=== PATIENT | female | born 1995 ===

== ENCOUNTER 2017-06-12 13:44 | Observation (INO) | payer BC ==
--- NOTE | 2017-06-12 14:14 | ED PDOC ---
HPI: General Adult Time Seen by Provider: 06/12/17 14:01 Chief Complaint (Nursing): Flu-like Symptoms Chief Complaint (Provider): Flu-like Symptoms History Per: Patient History/Exam Limitations: no limitations Onset/Duration Of Symptoms: Days Additional Complaint(s): 21 year old female who is currently 19 weeks presents to the emergency department with a fever onset last night, 06/11/2017. Associated with a dry cough, body aches, fatigue, and mild headache. Denies dysuria, vomiting, diarrhea, rash, abdominal pain, vaginal bleeding, or localized joint pain. Reports she took Tylenol at 8am this morning and did not receive a flu shot. Patient sees Dr. Juli HERNÁNDEZ with no issues to date. Past Medical History Reviewed: Historical Data, Nursing Documentation, Vital Signs Vital Signs: Last Vital Signs Temp 101.9 F H 06/12/17 13:57 Pulse 145 H 06/12/17 13:57 Resp 15 06/12/17 13:57 BP 145/79 06/12/17 13:57 Pulse Ox 99 06/12/17 15:49 - Medical History PMH: No Chronic Diseases - Surgical History Surgical History: No Surg Hx - Family History Family History: States: Unknown Family Hx - Social History Current smoker - smoking cessation education provided: No Alcohol: None Drugs: Denies - Allergies Allergies/Adverse Reactions: Allergies Allergy/AdvReac Type Severity Reaction Status Date / Time No Known Allergies Allergy Verified 06/12/17 13:56 Review of Systems ROS Statement: Except As Marked, All Systems Reviewed And Found Negative (As per HPI, otherwise negative) Constitutional: Positive for: Fever, Malaise, Other (fatigue and body aches) Respiratory: Positive for: Cough Gastrointestinal: Negative for: Vomiting, Abdominal Pain, Diarrhea Genitourinary Female: Negative for: Dysuria, Vaginal Bleeding Musculoskeletal: Negative for: Other (localized joint pain) Skin: Negative for: Rash Neurological: Positive for: Headache (mild) Physical Exam - Reviewed Nursing Documentation Reviewed: Yes Vital Signs Reviewed: Yes - Physical Exam Appears: Positive for: No Acute Distress Head Exam: Positive for: NORMAL INSPECTION Skin: Positive for: Normal Color, Warm, Dry ENT: Positive for: TM Is/Are (Normal), Pharyngeal Erythema (Mild) Neck: Positive for: Normal, Supple Cardiovascular/Chest: Positive for: Regular Rate, Rhythm. Negative for: Murmur Respiratory: Positive for: Normal Breath Sounds. Negative for: Accessory Muscle Use, Respiratory Distress Gastrointestinal/Abdominal: Positive for: Normal Exam (fundus is just below the umbilicus ), Soft. Negative for: Tenderness Extremity: Positive for: Normal ROM. Negative for: Pedal Edema Neurologic/Psych: Positive for: Alert, Oriented (x3) - Laboratory Results Result Diagrams: 06/12/17 14:13 06/12/17 14:13 - ECG O2 Sat by Pulse Oximetry: 99 (RA) Pulse Ox Interpretation: Normal Medical Decision Making Medical Decision Making: Time: 1400 Initial Impression: Flu-like symptoms in a midterm Initial Plan: --EKG --CMP --CBC w/ diff --PTT & Prothrombin --Chest portable --Tylenol 650 mg PO --Blood and Urine culture --Influenza A B --Urinalysis --Reevaluation Risks of radiation exposure were explained while benefits outweighs risks. --Negative for influenza A B Time: 1451 --Chest x-ray FINDINGS: LUNGS: No active pulmonary disease. PLEURA: No significant pleural effusion identified, no pneumothorax apparent. CARDIOVASCULAR: Normal. OSSEOUS STRUCTURES: No significant abnormalities. VISUALIZED UPPER ABDOMEN: Normal. OTHER FINDINGS: None. IMPRESSION: No active disease. labs reviewed mild leukocytosis flu negative but symptoms suggestive of flu w body aches, fever, cough Time: 1517 --Tamiflu 75 mg PO Time: 1520 --Patient signed out to Dr. Josefina HERNÁNDEZ --Pending reevaluation and disposition Scribe Attestation: Documented by Luz Mercado, acting as a scribe for Laci Longoria DO. Provider Scribe Attestation: All medical record entries made by the Scribe were at my direction and personally dictated by me. I have reviewed the chart and agree that the record accurately reflects my personal performance of the history, physical exam, medical decision making, and the department course for this patient. I have also personally directed, reviewed, and agree with the discharge instructions and disposition. Disposition - Clinical Impression Clinical Impression: Influenza-like symptoms - Patient ED Disposition Is Patient to be Admitted: Transfer of Care - Disposition Disposition: Transfer of Care Disposition Time: 15:22 Condition: STABLE Forms: [employer] (Citizen Of [place]) Patient Signed Over To: Kael Rocha Handoff Comments: pending re-eval/dispo
[2017-06-12 14:32] LABS: PARTIAL THROMBOPLASTIN TIME 27.9 Seconds (25.6-37.1); PROTHROMBIN TIME 11.6 Seconds (9.8-13.1)
[2017-06-12 14:37] LABS: BASO % 0.2 % (0.0-2.0); EOS # 0.1 K/uL (0.0-0.7); HEMOGLOBIN 11.2 g/dL (12.0-16.0); LYMPH # 0.4 K/uL (1.0-4.3); MEAN CELL VOLUME 83.4 fl (81.0-99.0); MEAN CORPUSCULAR HEMOGLOBIN 27.1 pg (27.0-31.0); MEAN CORPUSCULAR HGB CONC 32.5 g/dL (33.0-37.0); MEAN PLATELET VOLUME 11.4 fl (7.2-11.7); MONO # 0.9 K/uL (0.0-0.8); MONO % 7.5 % (0.0-10.0); NEUT # 10.8 K/uL (1.8-7.0); NEUT % 88.3 % (50.0-75.0); PLATELET COUNT 162 K/uL (130-400); RBC 4.15 Mil/uL (3.80-5.20); RED CELL DISTRIBUTION WIDTH 14.3 % (11.5-14.5); WHITE BLOOD COUNT 12.2 K/uL (4.8-10.8)
[2017-06-12 14:46] LABS: ALB/GLOB RATIO 1.2 (1.0-2.1); ALBUMIN 3.8 g/dL (3.5-5.0); ALT/SGPT 36 U/L (9-52); AST/SGOT 22 U/L (14-36); BLOOD UREA NITROGEN 5 mg/dl (7-17); GFR AFRICAN-AMERICAN > 60; GFR NON-AFRICAN AMERICAN > 60
--- NOTE | 2017-06-12 14:53 | RAD ---
HISTORY: , fever SOB cough COMPARISON: No prior. FINDINGS: LUNGS: No active pulmonary disease. PLEURA: No significant pleural effusion identified, no pneumothorax apparent. CARDIOVASCULAR: Normal. OSSEOUS STRUCTURES: No significant abnormalities. VISUALIZED UPPER ABDOMEN: Normal. OTHER FINDINGS: None. IMPRESSION: No active disease.
[2017-06-12] MEDS ORDERED: Sodium Chloride 0.9% 1,000 ML IV STA (15:04)
[2017-06-12 15:19] LABS: BANDS 5 % (0-2); BASOPHIL 1 % (0-2); LYMPHOCYTE 3 % (20-50); MONOCYTE 9 % (0-10); NEUTROPHIL 82 % (42-75); PLATELET ESTIMATE NORMAL (NORMAL); TOTAL CELLS COUNTED 100
[2017-06-12 15:20] LABS: HYPOCHROMIC SLIGHT; TOXIC GRANULATION PRESENT
--- NOTE | 2017-06-12 15:50 | ED PDOC ---
- Laboratory Results Result Diagrams: 06/12/17 14:13 06/12/17 14:13 - ECG O2 Sat by Pulse Oximetry: 99 (RA) Pulse Ox Interpretation: Normal Medical Decision Making Medical Decision Making: Patient signed out to provider at [address] Longoria pending reevaluation and final disposition. 153 PROCEDURE: Bilateral lower extremity venous duplex Doppler. HISTORY: SOB, tachycardia COMPARISON: None available. TECHNIQUE: Bilateral common femoral, superficial femoral, popliteal and posterior tibial veins were evaluated. Flow was assessed with color Doppler, compressibility, assessment of phasic flow and augmentation response. FINDINGS: COMMON FEMORAL VEIN: Right CFV: Unremarkable. Left CFV: Unremarkable. SUPERFICIAL FEMORAL VEIN: Right SFV: Unremarkable. Left SFV: Unremarkable. POPLITEAL VEIN: Right Popliteal: Unremarkable. Left Popliteal: Unremarkable. POSTERIOR TIBIAL VEIN: Right PTV: Unremarkable. Left PTV: Unremarkable. OTHER FINDINGS: None. IMPRESSION: No evidence of deep venous thrombosis. Documented by Carie Burrows acting as a scribe for Kael Rocha MD. All medical record entries made by the Scribe were at my direction and personally dictated by me. I have reviewed the chart and agree that the record accurately reflects my personal performance of the history, physical exam, medical decision making, and the department course for this patient. I have also personally directed, reviewed, and agree with the discharge instructions and disposition. Pt remains tachycardic at 130 despite temp 99.5. SOB on ambulation. Discussed with Ob Dr. Angel, agrees that CTA chest appropriate to r/o PE. Discussed with pt, risks and benefit discussed. Pt agrees to have CTA chest. Disposition - Clinical Impression Clinical Impression: Influenza-like symptoms, Tachycardia - POA Present On Arrival: None - Disposition Disposition: Hospitalized as Observation Patient Disposition Time: 18:48 Condition: FAIR Forms: Crew (Amharic)
[2017-06-12 16:14] LABS: SQUAMOUS EPITHIAL 1 /hpf (0-5); URINE BILIRUBIN NEGATIVE (NEGATIVE); URINE BLOOD SMALL (NEGATIVE); URINE CLARITY SLIGHTY-CLOUDY (Clear); URINE COLOR STRAW (YELLOW); URINE GLUCOSE (UA) NEG (Normal); URINE LEUKOCYTE ESTERASE NEG Leu/uL (Negative); URINE PROTEIN NEGATIVE (NEGATIVE); URINE UROBILINOGEN 0.2-1.0 mg/dL (0.2-1.0)
--- NOTE | 2017-06-12 16:34 | US ---
PROCEDURE: Bilateral lower extremity venous duplex Doppler. HISTORY: SOB, tachycardia COMPARISON: None available. TECHNIQUE: Bilateral common femoral, superficial femoral, popliteal and posterior tibial veins were evaluated. Flow was assessed with color Doppler, compressibility, assessment of phasic flow and augmentation response. FINDINGS: COMMON FEMORAL VEIN: Right CFV: Unremarkable. Left CFV: Unremarkable. SUPERFICIAL FEMORAL VEIN: Right SFV: Unremarkable. Left SFV: Unremarkable. POPLITEAL VEIN: Right Popliteal: Unremarkable. Left Popliteal: Unremarkable. POSTERIOR TIBIAL VEIN: Right PTV: Unremarkable. Left PTV: Unremarkable. OTHER FINDINGS: None. IMPRESSION: No evidence of deep venous thrombosis.
[2017-06-12] MEDS ORDERED: Iodixanol 320 MG/ML 100 ML BOTTLE IV ONE (17:31)
[2017-06-12] MEDS ORDERED: Sodium Chloride 0.9% 100 ML ONE (17:32)
[2017-06-12] MEDS ORDERED: Albuterol-Ipratrop 3 mg / 0.5 (3 ml) UD INH PRN (20:45)
[2017-06-12 22:48] LABS: ABG ALLEN TEST YES; ARTERIAL BLOOD GAS HCO3 23.1 mmol/L (21-28); ARTERIAL BLOOD GAS HEMOGLOBIN 10.8 g/dL (11.7-17.4); ARTERIAL BLOOD GAS O2 CONTENT 14.9 ML/dL (15-23); ARTERIAL BLOOD GAS O2 SAT 99.5 % (95-98); ARTERIAL BLOOD GAS PCO2 28 mm/Hg (35-45); ARTERIAL BLOOD GAS PH 7.47 (7.35-7.45); ARTERIAL BLOOD GAS PO2 102 mm/Hg (80-100); ARTERIAL BLOOD GAS TCO2 21.3 mmol/L (22-28)
--- NOTE | 2017-06-13 00:57 | PN ---
DATE: SUBJECTIVE: I was called this evening for consult because of sinus tachycardia. I did review the information on [employer] remotely. According to the ER evaluation, the patient is a 21-year-old female who is currently 19 weeks who presents to the Emergency Room Department with a fever onset last night associated with dry cough, body aches, fatigue and mild headache. The patient denies dysuria, vomiting, diarrhea, rash, abdominal pain, vaginal bleeding, or localized joint pain. She reports she took Tylenol at a.m. this morning. Did not receive flu shot. The patient's EKG in Emergency Room revealed sinus tachycardia at rate of 139. The patient was admitted to telemetry after CT angio of the chest was performed as well as venous Doppler of the lower extremity. The official report of the venous Doppler of the lower extremity was negative for DVT. Official report of chest CT angio is still pending, however, my own review, did not reveal any central pulmonary embolism or aortic dissection. I did ask the nurse to repeat EKG which was faxed to me revealed sinus tachycardia at the same rate the first EKG revealed which was 139 per minute with new subtle anterior T wave inversion lead V1 and V2. According to the nurse, the patient has no chest pain or back pain and has no complains at all. The patient's initial temperature around 2:00 p.m. today was 101.9. In view of the above data, the patient will be observed on telemetry. The patient did received albuterol inhaler at around 8:45 a.m. which may contribute sinus tachycardia. Sinus tachycardia at this point is a physiologic response to the patient's fever as well as the possibility of right lower lobe pneumonia has seen on the chest x-ray. I will ask for to be done and I did request echocardiographic study and I will follow the official report of the CT angio of the chest. Kris Frausto MD
[2017-06-13 07:05] LABS: BARBITURATES, UR NEGATIVE (NEGATIVE); BENZODIAZEPINES, UR NEGATIVE (NEGATIVE); OPIATES, UR NEGATIVE (NEGATIVE); PHENCYCLIDINE, UR NEGATIVE (NEGATIVE)
[2017-06-13 07:20] LABS: HEMOGLOBIN 11.3 g/dL (12.0-16.0); MEAN CELL VOLUME 83.2 fl (81.0-99.0); MEAN CORPUSCULAR HEMOGLOBIN 27.1 pg (27.0-31.0); MEAN CORPUSCULAR HGB CONC 32.6 g/dL (33.0-37.0); RBC 4.18 Mil/uL (3.80-5.20); WHITE BLOOD COUNT 9.5 K/uL (4.8-10.8)
[2017-06-13 07:34] LABS: ALB/GLOB RATIO 1.1 (1.0-2.1); ALBUMIN 3.6 g/dL (3.5-5.0); ALT/SGPT 42 U/L (9-52); AST/SGOT 30 U/L (14-36); BLOOD UREA NITROGEN 3 mg/dl (7-17); GFR AFRICAN-AMERICAN > 60; GFR NON-AFRICAN AMERICAN > 60
[2017-06-13 07:48] LABS: T4 11.5 ug/dl (5.5-11.0)
--- NOTE | 2017-06-13 08:54 | CT ---
PROCEDURE: CT Chest with contrast (Pulmonary Angiogram) HISTORY: SOB Tachycardia COMPARISON: None available. TECHNIQUE: Axial computed tomography images were obtained of the chest in the pulmonary arterial phase of enhancement. Coronal and sagittal reformatted images were created and reviewed. Intravenous contrast dose: 98 mL Visipaque 320 Radiation dose: Total exam DLP = 371.9 mGy-cm. This CT exam was performed using one or more of the following dose reduction techniques: Automated exposure control, adjustment of the mA and/or kV according to patient size, and/or use of iterative reconstruction technique. FINDINGS: PULMONARY ARTERIES: Limited evaluation due to suboptimal opacification and respiratory motion. No central pulmonary embolism. AORTA: No acute findings. No thoracic aortic aneurysm. LUNGS: Unremarkable. No nodule, mass or pulmonary consolidation. PLEURAL SPACES: Unremarkable. No effusion or pneuomothorax. HEART: Unremarkable. No cardiomegaly. No significant pericardial effusion. LYMPH NODES: Prominent subcarinal node measuring 1.3 cm in short axis. BONES, CHEST WALL: Unremarkable. No fracture or destructive lesion OTHER FINDINGS: Unremarkable. IMPRESSION: Limited CT pulmonary angiogram. No pulmonary embolus.
--- NOTE | 2017-06-13 09:07 | US ---
PROCEDURE: OB Pelvic Ultrasound HISTORY: 19 weeks tachycardia LMP: 02/01/2017 COMPARISON: None available. FINDINGS: UTERUS: Placenta: Posterior Presentation: Breech BPD: 4.6 cm compatible with estimated gestational age of 20 weeks, 0 days HC: 17.4 cm compatible with estimated gestational age of 19 weeks, 6 days HC: 14.7 cm compatible with estimated gestational age of 20 weeks, 0 days FL: 3.2 cm compatible with estimated gestational age of 19 weeks, 6 days Heart rate: 157 bpm. age (Ultrasound estimated): 20 weeks, 0 days Rosario-gestational hemorrhage: None. Date of delivery (Ultrasound estimated) : 10/30/2017 CERVIX: Measures 3.5 cm. Long and closed. No cervical abnormality seen. RIGHT OVARY: Measures 2.7 x 1.9 x 1.9 cm. No mass lesion. Normal flow. LEFT OVARY: Measures 2.0 x 2.3 x 1.4 cm. No solid mass. Normal flow. FREE FLUID: None. OTHER FINDINGS: None. IMPRESSION: Single live intrauterine with average ultrasound age of 20 weeks, 0 days. heart rate 157 beats per minute. Cervix long and closed.
[2017-06-13] MEDS: Levalbuterol 0.63 MG/3 ML Inhal Soln UD INH PRN ×2 (11:32→17:41)
--- NOTE | 2017-06-13 13:26 | HP ---
CHIEF COMPLAINT: Flu-like symptoms. HISTORY OF PRESENT ILLNESS: This is a 21-year-old female who is 19 weeks' who was having high fever, dry cough, body ache, fatigue, and headache, so the patient was brought to the Emergency Room where the patient was found to be tachycardic with heart rate into 140. So, the patient was admitted for further management. REVIEW OF SYSTEMS: Positive for flu-like symptoms. Review of systems otherwise is negative for headache, dizziness, syncope, loss of consciousness, chest pain, shortness of breath, nausea, vomiting, diarrhea, constipation or any new joint or extremity pain. Review of systems of all other organ systems is unremarkable. PAST MEDICAL HISTORY: Unremarkable. PAST SURGICAL HISTORY: Unremarkable. PERSONAL HISTORY: The patient is currently nonsmoker, nondrinker and no substance abuse, although the patient's toxicology is positive for marijuana. MEDICATIONS: The patient is not on any medication. ALLERGIES: THE PATIENT IS NOT ALLERGIC TO ANY MEDICATIONS. FAMILY HISTORY: Noncontributory. PHYSICAL EXAMINATION: GENERAL: A well-built and well-nourished, overweight 21-year-old female, in no acute distress. VITAL SIGNS: Temperature of 99.3, pulse of 118, respirations of 19, and blood pressure of 115/80, and saturation of 97%. HEENT AND NECK: Pupils are reactive to light. No JVD. No thyromegaly. No lymphadenopathy. No nystagmus. Normocephalic and atraumatic skull. HEART: S1 and S2, normal and regular. Tachycardic. No significant murmur, gallop or rub is heard. LUNGS: Exam shows good bilateral air exchange. No rales or rhonchi. ABDOMEN: Soft and nontender. No organomegaly. No fluids. Bowel sounds are plus and normal. The patient is a 19 weeks' . EXTREMITIES: No edema. No calf swelling. No tenderness. No acute ischemia. CENTRAL NERVOUS SYSTEM: Exam is essentially unchanged and there is no sign of any acute gross focal motor or sensory neurological deficits. DIAGNOSTIC DATA: Available diagnostic data reviewed. LABORATORY DATA: WBC of 9.5, hemoglobin of 11.3, hematocrit of 34.8, and platelets of 133. Sodium of 130, potassium of 3.8, chloride of 106, bicarbonate of 18, BUN of 3, and creatinine of 0.1. SMA-12 is unremarkable. Urinalysis is negative. Urine toxicology is positive for marijuana. IMAGING DATA: CAT scan of the chest is unremarkable for pulmonary embolism. Extremity ultrasounds are negative. Chest x-ray is clear. ADMITTING IMPRESSION: Flu like symptoms with negative flu test, and sinus tachycardia. PLAN: As ordered. Treatment plan discussed with the patient. Blayne Estevez MD
[2017-06-13] MEDS: Levalbuterol 0.63 MG/3 ML Inhal Soln UD INH SCH ×2 (13:32→20:00)
--- NOTE | 2017-06-13 14:47 | CP.PCM.CON ---
History of Present Illness - History of Present Illness History of Present Illness: Pulmonary consult on 06/13/17, for a 21 y/o F, with no chronic PMH, admitted to [facility] on 06/12/17 due to mild SOB, associated to dry cough with periods of productive small amount of white phlegms, sore throat, increased pain with cough, moderate intensity 6:10, fever (in ER 101. 9 F) body ache, onset day [employer] , Pt taking Tylenol with no relief of symptoms. Worsening symptoms: On evaluation, found with 20 weeks , Tachycardic, HR 118-132 BPM upon arrival to ED unit. Aggravated factor: No medications at home. Pt denied: Abdominal pain, n/v/d, urinary symptoms, bloody cough, bleeding, headache, dizziness, syncope, LOC, numbness, sick contact, recent travel out of [facility]. CT Chest showed; Limited evaluation due to suboptimal opacification and respiratory motion. No: PE, pleural effusion, pneumothorax, nodule, mass or pulmonary consolidation. Ext U-S: No DVT. EKG: Sinus Tachycardia. Review of Systems - Constitutional Constitutional: Fever - EENT Eyes: Other (negative) Ears: Other (negative) Nose/Mouth/Throat: Other (negative) - Cardiovascular Cardiovascular: Rapid Heart Rate - Respiratory Respiratory: Cough, Dyspnea, Pain with Coughing - Gastrointestinal Gastrointestinal: Other (negative) - Genitourinary Genitourinary: Other (negative) - Musculoskeletal Musculoskeletal: Other (negative) - Integumentary Integumentary: Other (negative) - Neurological Neurological: Other (negative) - Psychiatric Psychiatric: Other (negative) - Endocrine Endocrine: Other (negative) - Hematologic/Lymphatic Hematologic: Other (negative) Past Patient History - Past Medical History & Family History Past Medical History?: No Pertinent Family History: Unknown - Past Social History Smoking Status: Never Smoked Alcohol: None Drugs: Cannabis Home Situation {Lives}: With Family - CARDIAC Hx Cardiac Disorders: No - PULMONARY Hx Respiratory Disorders: No - NEUROLOGICAL Hx Neurological Disorder: No - HEENT Hx HEENT Problems: No - RENAL Hx Chronic Kidney Disease: No - ENDOCRINE/METABOLIC Hx Endocrine Disorders: No - HEMATOLOGICAL/ONCOLOGICAL Hx Blood Disorders: No Hx AIDS: No Hx Human Immunodeficiency Virus (HIV): No - INTEGUMENTARY Hx Dermatological Problems: No - MUSCULOSKELETAL/RHEUMATOLOGICAL Hx Falls: No - GASTROINTESTINAL Hx Gastrointestinal Disorders: No - GENITOURINARY/GYNECOLOGICAL Hx Genitourinary Disorders: No - PSYCHIATRIC Hx Substance Use: No - SURGICAL HISTORY Hx Surgeries: No - ANESTHESIA Hx Anesthesia: No Meds Home Medications: Home Medication List Medication Instructions Recorded Confirmed Type Amoxicillin/Potassium Clav 1 each PO BID #10 tablet 06/14/17 Rx [Augmentin 500-125 Tablet] Oseltamivir Phosphate [Tamiflu] 75 mg PO BID #6 capsule 06/14/17 Rx Allergies/Adverse Reactions: Allergies Allergy/AdvReac Type Severity Reaction Status Date / Time No Known Allergies Allergy Verified 06/12/17 13:56 - Medications Medications: Current Medications Acetaminophen (Tylenol 325mg Tab) 650 mg PO Q6 PRN PRN Reason: Fever >100.4 F Benzocaine/Menthol (Cepacol Sore Throat) 1 gunner PO Q2 PRN PRN Reason: Sore Throat Levalbuterol HCl (Xopenex) 0.63 mg INH RQ6 PRISCILA Last Admin: 06/13/17 13:32 Dose: 0.63 mg Levalbuterol HCl (Xopenex) 0.63 mg INH RQ8 PRN PRN Reason: Shortness of Breath Last Admin: 06/13/17 11:32 Dose: 0.63 mg Oseltamivir Phosphate (Tamiflu Cap) 75 mg PO BID PRISCILA PRN Reason: Protocol Last Admin: 06/13/17 11:14 Dose: 75 mg Physical Exam - Constitutional Appears: No Acute Distress - Head Exam Head Exam: NORMAL INSPECTION - Eye Exam Eye Exam: PERRL - ENT Exam ENT Exam: Normal Exam - Neck Exam Neck exam: Positive for: Normal Inspection - Respiratory Exam Respiratory Exam: Decreased Breath Sounds (at bases), Rales - Cardiovascular Exam Cardiovascular Exam: REGULAR RHYTHM - GI/Abdominal Exam Additional comments: defered - Extremities Exam Extremities exam: Positive for: normal inspection - Back Exam Back exam: NORMAL INSPECTION - Neurological Exam Neurological exam: Alert, Oriented x3 Additional comments: No motor /sensory deficit. - Psychiatric Exam Psychiatric exam: Normal Mood - Skin Skin Exam: Warm Results - Vital Signs Recent Vital Signs: Last Vital Signs Temp 98.6 F 06/13/17 12:00 Pulse 112 H 06/13/17 12:00 Resp 18 06/13/17 12:00 BP 127/84 06/13/17 12:00 Pulse Ox 98 06/13/17 12:00 jawsinder Barroso - Labs Result Diagrams: 06/13/17 06:24 06/13/17 06:24 Labs: Laboratory Results - last 24 hr 06/12/17 06/12/17 06/12/17 14:13 15:52 22:30 WBC RBC Hgb Hct MCV MCH MCHC RDW Plt Count Neutrophils % (Manual) 82 H Band Neutrophils % 5 H Lymphocytes % (Manual) 3 L Monocytes % (Manual) 9 Basophils % (Manual) 1 Toxic Granulation Present Platelet Estimate Normal Hypochromasia (manual) Slight pCO2 28 L pO2 102 H HCO3 23.1 ABG pH 7.47 H ABG Total CO2 21.3 L ABG O2 Saturation 99.5 H ABG O2 Content 14.9 L ABG Base Excess -2.4 L ABG Hemoglobin 10.8 L ABG Carboxyhemoglobin 1.5 POC ABG HHb (Measured) 0.5 ABG Methemoglobin 0.9 ABG O2 Capacity 15.0 L Blade Test Yes A-a O2 Difference 91.0 Hgb O2 Saturation 97.1 FiO2 32.0 Sodium Potassium Chloride Carbon Dioxide Anion Gap BUN Creatinine Est GFR ( Amer) Est GFR (Non-Af Amer) Random Glucose Calcium Total Bilirubin AST ALT Alkaline Phosphatase Total Protein Albumin Globulin Albumin/Globulin Ratio Vitamin B12 Thyroxine (T4) TSH 3rd Generation Urine Color Straw Urine Clarity Slighty-cloudy Urine pH 7.0 Ur Specific [place] 1.008 Urine Protein Negative Urine Glucose (UA) Neg Urine Ketones Negative Urine Blood Small Urine Nitrate Negative Urine Bilirubin Negative Urine Urobilinogen 0.2-1.0 Ur Leukocyte Esterase Neg Urine RBC (Auto) < 1 Urine Microscopic WBC 1 Ur Squamous Epith Cells 1 Urine Opiates Screen Urine Methadone Screen Ur Barbiturates Screen Ur Phencyclidine Scrn Ur Amphetamines Screen U Benzodiazepines Scrn U Oth Cocaine Metabols U Cannabinoids Screen 06/13/17 06/13/17 06/13/17 05:17 06:24 06:24 WBC 9.5 RBC 4.18 Hgb 11.3 L Hct 34.8 MCV 83.2 MCH 27.1 MCHC 32.6 L RDW 15.0 H Plt Count 133 Neutrophils % (Manual) Band Neutrophils % Lymphocytes % (Manual) Monocytes % (Manual) Basophils % (Manual) Toxic Granulation Platelet Estimate Hypochromasia (manual) pCO2 pO2 HCO3 ABG pH ABG Total CO2 ABG O2 Saturation ABG O2 Content ABG Base Excess ABG Hemoglobin ABG Carboxyhemoglobin POC ABG HHb (Measured) ABG Methemoglobin ABG O2 Capacity Blade Test A-a O2 Difference Hgb O2 Saturation FiO2 Sodium 138 Potassium 3.8 Chloride 106 Carbon Dioxide 18 L Anion Gap 18 BUN 3 L Creatinine 0.4 L Est GFR ( Amer) > 60 Est GFR (Non-Af Amer) > 60 Random Glucose 89 Calcium 9.0 Total Bilirubin 0.2 AST 30 ALT 42 Alkaline Phosphatase 56 Total Protein 6.8 Albumin 3.6 Globulin 3.2 Albumin/Globulin Ratio 1.1 Vitamin B12 556 Thyroxine (T4) 11.5 H TSH 3rd Generation 0.48 Urine Color Urine Clarity Urine pH Ur Specific [place] Urine Protein Urine Glucose (UA) Urine Ketones Urine Blood Urine Nitrate Urine Bilirubin Urine Urobilinogen Ur Leukocyte Esterase Urine RBC (Auto) Urine Microscopic WBC Ur Squamous Epith Cells Urine Opiates Screen Negative Urine Methadone Screen Negative Ur Barbiturates Screen Negative Ur Phencyclidine Scrn Negative Ur Amphetamines Screen Negative U Benzodiazepines Scrn Negative U Oth Cocaine Metabols Negative U Cannabinoids Screen Positive H reviewed J.P. - EKG Data EKG comments: reviewed J.P. - Imaging and Cardiology CT scan - chest Status: Report reviewed by me (Dharmesh) Chest x-ray Status: Report reviewed by me (Dharmesh) Assessment & Plan (1) Influenza-like symptoms Status: Acute Priority: High (2) Sore throat Status: Resolved Priority: High (3) 19 weeks gestation of Status: Acute Priority: High (4) Cannabis abuse Status: Acute Priority: High - Assessment and Plan (Free Text) Plan: Continue Tamiflu, Augmentin, Cepacole, Xopenex. - Date & Time Date: 06/13/17
--- NOTE | 2017-06-13 15:00 | CARD ---
APPROVED REPORT EKG Measurement Heart [id number] <Conclusion> Sinus tachycardia ST & T wave abnormality, nonspecific Abnormal ECG
--- NOTE | 2017-06-13 15:08 | CARD ---
APPROVED REPORT EKG Measurement Heart [id number] <Conclusion> Sinus tachycardia Septal infarct, age undetermined Abnormal ECG
[2017-06-13] MEDS ORDERED: Nasal Spray(Ocean spray) NAS PRN (17:34)
[2017-06-13] MEDS: Benzocaine/Menthol (Cepacol) Lozenge PO PRN (18:38)
[2017-06-13] MEDS ORDERED: AYR BABY SALINE NOSE DROP NAS PRN (19:15)
--- NOTE | 2017-06-13 19:58 | CON ---
OBSTETRICS CONSULT DATE: 06/13/2017 HISTORY OF PRESENT ILLNESS: This is a 21-year-old, G2, P0-0-1-0 at 19 weeks gestation with an EDC of 11/07/2017 by 8 plus week ultrasound, who presented to the Emergency Department with an elevated heart rate, shortness of breath, chest tightness, and a fever. The patient reports she had a cough that produced some phlegm. The patient reports that this morning, she still has a cough, but there is no phlegm production, although the cough is painful. The patient reports that she had a coworker who had a cold with congestion. The patient denies vaginal bleeding or leaking . The patient presented to the ER with a fever onset last night on 06/11/2017 associated with a dry cough, body ache, fatigue, and mild headache. The patient reports that she did not receive her flu vaccine. All other review of systems are reviewed and negative. In the Emergency Department as of 06/12/2017 at 1:57 p.m., her temp was 101.9, pulse was 145, blood pressure was 145/79, and pulse ox was 99. The patient had reported that she denied dysuria, vomiting, diarrhea, rash, abdominal pain, vaginal bleeding, or localized joint pain. She reported that she took Tylenol at 8 a.m. on the morning of 06/12/2017. The clinical impression in ER was that she had influenza like symptoms with tachycardia given that she remained tachycardic at 130 despite her temp going down to 99.5 and that she had shortness of breath on ambulation. It was discussed with me and I agreed that she should have a CTA chest to rule out PE, this was discussed with the patient and she had agreed. Of note, her influenza type A and B were negative. The patient was seen this morning by me. She reported that she felt that the baby moving, she felt chest tightness and reported that she had a nonproductive cough that was painful. PAST MEDICAL HISTORY: Healthy. PAST SURGICAL HISTORY: None. MEDICATIONS: She is receiving benzocaine menthol, Cepacol for sore throat, and Tylenol as needed. She is also receiving Tamiflu. ALLERGIES: NO KNOWN DRUG ALLERGIES. FAMILY HISTORY: Noncontributory. GYNECOLOGIC HISTORY: Regular periods. The patient denies any STDs or any abnormal Pap. SOCIAL HISTORY: The patient denies tobacco or alcohol use. PHYSICAL EXAMINATION: GENERAL: The patient appears slightly short of breath, sitting up in bed. HEART: Regular rate and rhythm this morning with tachycardia at about 118 to 120s. CHEST: Slight wheezes were heard on the . LUNGS: Cleat to auscultation bilaterally. ABDOMEN: Soft, nontender, and gravid. RADIOLOGIC DATA: Chest x-ray done on 06/12/2017, no active disease. Extremity ultrasound done on 06/12/2017, no evidence of deep venous thrombosis. Chest CT done on 06/12/[address] pulmonary angiogram, no pulmonary embolus. Obstetrical ultrasound done on 06/12/2017 revealed a single live intrauterine with average ultrasound age of 20 weeks, heart rate 157 beats per minute, and cervix long and closed. LABORATORY DATA: White blood cell count yesterday was 12.2, it was come down to 9.5 and her hemoglobin today is 11.3. Of note, her urine toxicology is positive for cannabinoids. Influenza type A and B were negative. Her urinalysis is essentially negative. ASSESSMENT AND PLAN: This is a 21-year-old G2, P0-0-1-0 at 19 weeks who was admitted with a fever and tachycardia. She was admitted under medicine to telemetry due to tachycardia. Her chest x-ray and CT angio of the chest were both negative. I spoke with Dr. Frausto who is the infrastructure software engineer, who is seeing her and he reports that she did receive albuterol inhaler at around 8:45, which may contributed this sinus tachycardia. He reports the sinus tachycardia at this point is a physiologic response to the patient's fever as well as a possibility of right lower lobe pneumonia as seen on chest x-ray. She requested an echocardiographic study and I spoke with him this morning and he recommended that the patient can receive Xopenex nebulizer treatment and he also requested a pulmonary consult for this patient. From an OB standpoint, I think this patient is stable and pulmonary to see the patient. Melissa Bustos MD [facility] # [id number]
--- NOTE | 2017-06-13 20:45 | CON ---
CARDIOLOGY CONSULT DATE: REASON FOR CONSULTATION: Sinus tachycardia. HISTORY OF PRESENT ILLNESS: The patient is a 21-year-old female who has no significant past medical history. She is primigravida 19 weeks of . She has no problems with her so far. She was admitted because of fever and cough, which has started the night before her presentation to the emergency room. She also did report fatigue, body aches as well as headache. The patient denies any abdominal pain or dysuria and denies any dizziness. The patient denies any back pain or diaphoresis. The patient did report mild wheezing. SOCIAL HISTORY: The patient is a nonsmoker and nondrinker. MEDICATIONS: Cepacol throat lozenges every two hours p.r.n., Tamiflu 75 mg twice a day, and Xopenex 0.63 mg inhalation every eight hours. REVIEW OF SYSTEMS: No dizziness or syncope. No back pain or diaphoresis. PHYSICAL EXAMINATION: GENERAL: The patient is a young middle aged female who does not appear to be in acute distress. VITAL SIGNS: Blood pressure 127/84, heart rate 112, temperature 98.6, and respirations 18. HEENT: Normocephalic. NECK: No JVD. CHEST: expiratory wheezing. HEART: S1 and S2 regular. ABDOMEN: Soft. EXTREMITIES: No edema or calf tenderness. LABORATORY DATA: Today's CBC; WBC 9.5, hemoglobin 11.3, hematocrit 34.8, and platelet count 133,000. Yesterday's white count was 12.3. PT/PTT and INR are within normal limits. Today's SMA-7; sodium 138, potassium 3.8, chloride 106, CO2 of 18, glucose 89, BUN 3, and creatinine 0.4. T4 is elevated at 11.5, TSH level is within normal limit. Chest CT angio limited study. No pulmonary embolus. No thoracic or aortic aneurysm. Lower extremity ultrasound, no evidence of DVT. Chest x-ray suggestive of right lower lobe infiltrate. EKGs; the first EKG revealed sinus tachycardia at a rate of 139 and the second one revealed sinus tachycardia at 139 with nonspecific anterior T wave changes. Urine drug screen is positive for cannabinoids. ASSESSMENT: 1. Consider right lower lobe pneumonia. 2. Bronchospasm. 3. Sinus tachycardia as physiologic response to this patient's current pulmonary condition as well as underlying fever. The patient's initial temperature was 101.9 on admission. 4. Primigravida 19 weeks . 5. Cannabinoid abuse. RECOMMENDATIONS: Continue current Xopenex inhaler. Obtain an echocardiographic study tomorrow. Kris Frausto MD
[2017-06-14] MEDS: Levalbuterol 0.63 MG/3 ML Inhal Soln UD INH SCH ×3 (01:17→13:35)
[2017-06-14] MEDS: Benzocaine/Menthol (Cepacol) Lozenge PO PRN ×3 (09:27→16:25)
--- NOTE | 2017-06-14 09:42 | PN ---
DATE: 06/14/2017 SUBJECTIVE: The patient is seen and examined. Interim events noted. Consults noted and appreciated. Cardiology and Pulmonary followup and intervention noted and appreciated. The patient remains in Progressive Care Unit on telemetry monitoring. Feels much better. No chest pain and no shortness of breath. She has a little bit of coughing and congestion, but much improved since yesterday. No specific issue reported by nursing staff. Heart rate was controlled in 80's. PHYSICAL EXAMINATION: GENERAL: The patient is in no acute distress. VITAL SIGNS: Stable. CARDIOPULMONARY: Heart exam S1 and S2 normal and regular. LUNGS: Good bilateral air exchange. GASTROINTESTINAL: Abdomen is soft and nontender. EXTREMITIES: No edema, no calf swelling, and no tenderness. No acute ischemia. CENTRAL NERVOUS SYSTEM: Exam is essentially unchanged. DIAGNOSTIC DATA: Available diagnostic data reviewed. Telemetry monitoring showed occasional episodes of tachycardia, but much better than before. ASSESSMENT AND PLAN: Overall, the patient's general medical condition is stable. Plan as ordered. Blayne Estevez MD
--- NOTE | 2017-06-14 12:20 | CP.PCM.CON ---
History of Present Illness - History of Present Illness History of Present Illness: 21 year old female who is currently 19 weeks presents to the emergency department with a fever onset last night, 06/11/2017. Associated with a dry cough, body aches, fatigue, and mild headache. Denies dysuria, vomiting, diarrhea, rash, abdominal pain, vaginal bleeding, or localized joint pain. patient started on tamiflu empirically rapid flu negative cultures pending feels better Review of Systems - Review of Systems All systems: reviewed and no additional remarkable complaints except - Constitutional Constitutional: As Per HPI - EENT Eyes: absent: As Per HPI, Blind Spots, Blurred Vision, Change in Vision, Decreased Night Vision, Diplopia, Discharge, Dry Eye, Exophthalmos, Floaters, Irritation, Itchy Eyes, Loss of Peripheral Vision, Pain, Photophobia, Requires Corrective Lenses, Sees Flashes, Spots in Vision, Tunnel Vision, Other Visual Disturbances, Loss of Vision, Other Ears: absent: As Per HPI, Decreased Hearing, Ear Discharge, Ear Pain, Tinnitus, Abnormal Hearing, Disequilibrium, Dizziness, Other Nose/Mouth/Throat: absent: As Per HPI, Epistaxis, Nasal Congestion, Nasal Discharge, Nasal Obstruction, Nasal Trauma, Nose Pain, Post Nasal Drip, Sinus Pain, Sinus Pressure, Bleeding Gums, Change in Voice, Dental Pain, Dry Mouth, Dysphagia, Halitosis, Hoarsness, Lip Swelling, Mouth Lesions, Mouth Pain, Odynophagia, Sore Throat, Throat Swelling, Tongue Swelling, Facial Pain, Neck Pain, Neck Mass, Other - Breasts Breasts: absent: As Per HPI, Change in Shape, Mass, Pain, Nipple Discharge, Nipple Inversion, Skin Changes, Swelling, Other - Cardiovascular Cardiovascular: absent: As Per HPI, Acrocyanosis, Chest Pain, Chest Pain at Rest , Chest Pain with Activity, Claudication, Diaphoresis, Dyspnea, Dyspnea on Exertion, Edema, Irregular Heart Rhythm, Pain Radiating to Arm/Neck/Jaw, Leg Edema, Leg Ulcers, Lightheadedness, Orthopnea, Palpitations, Paroxysmal Nocturnal Dyspnea, Pedal Edema, Radiating Pain, Rapid Heart Rate, Slow Heart Rate, Syncope, Other - Respiratory Respiratory: absent: As Per HPI, Cough, Dyspnea, Hemoptysis, Dyspnea on Exertion , Wheezing, Snoring, Stridor, Pain on Inspiration, Chest Congestion, Excessive Mucous Production, Change in Mucous Color, Pain with Coughing, Other - Gastrointestinal Gastrointestinal: absent: As Per HPI, Abdominal Pain, Belching, Bloating, Change in Bowel Habits, Change in Stool Character, Coffee Ground Emesis, Constipation, Cramping, Diarrhea, Dyspepsia, Dysphagia, Early Satiety, Excessive Flatus, Fecal Incontinence, Heartburn, Hematemesis, Hematochezia, Loose Stools, Melena, Nausea, Odynophagia, Temesmus, Vomiting, Other - Genitourinary Genitourinary: absent: As Per HPI, Change in Urinary Stream, Difficulty Urinating, Dysuria, Flank Pain, Hematuria, Pyuria, Nocturia, Urinary Incontinence, Urinary Frequency, Urinary Hesitance, Urinary Urgency, Voiding Freq/Small Amts, Freq UTI, Hx Renal/Bladder Calculi, Hx /Renal Surgery, Bladder Distension, Other - Reproductive: Female Reproductive:Female: As Per HPI - Menstruation Menstruation: As Per HPI - Musculoskeletal Musculoskeletal: absent: As Per HPI, Abnormal Gait, Arthralgias, Atrophy, Back Pain, Deformity, Joint Swelling, Limited Range of Motion, Loss of Height, Muscle Cramps, Muscle Weakness, Myalgias, Neck Pain, Numbness, Radiating Pain into Limb, Stiffness, Tingling, Other - Integumentary Integumentary: absent: As Per HPI, Acne, Alopecia, Bleeding Lesions, Change in Hair, Change in Nails, Change in Pigmentation, Changing Lesions, Dry Skin, Erythema, Furuncle, Hirsutism, Lesions, New Lesions, Non-Healing Lesions, Photosensitivity, Pruritus, Rash, Skin Pain, Skin Ulcer, Sores, Striae, Swelling , Unusual Bruising, Wounds, Jaundice, Other - Neurological Neurological: absent: As Per HPI, Abnormal Gait, Abnormal Hearing, Abnormal Movements, Abnormal Speech, Behavioral Changes, Burning Sensations, Confusion, Convulsions, Disequilibrium, Dizziness, Numbness, Focal Weakness, Frequent Falls , Headaches, Lack of Coordination, Loss of Vision, Memory Loss, Paresthesias, Radicular Pain, Restless Legs, Sensory Deficit, Syncope, Tingling, Tremor, Vertigo, Weakness, Other Visual Disturbances, Other - Psychiatric Psychiatric: absent: As Per HPI, Abnormal Sleep Pattern, Anhedonia, Anxiety, Auditory Hallucinations, Behavioral Changes, Change in Appetite, Change in Libido, Confusion, Depression, Difficulty Concentrating, Hallucinations, Homicidal Ideation, Hopelessness, Irritability, Memory Loss, Mood Swings, Panic Attacks, Paranoia, Suicidal Ideation, Visual Hallucinations, Tactile Hallucinations, Other Past Patient History - Past Medical History & Family History Past Medical History?: No - Past Social History Smoking Status: Never Smoked - CARDIAC Hx Cardiac Disorders: No - PULMONARY Hx Respiratory Disorders: No - NEUROLOGICAL Hx Neurological Disorder: No - HEENT Hx HEENT Problems: No - RENAL Hx Chronic Kidney Disease: No - ENDOCRINE/METABOLIC Hx Endocrine Disorders: No - HEMATOLOGICAL/ONCOLOGICAL Hx Blood Disorders: No Hx AIDS: No Hx Human Immunodeficiency Virus (HIV): No - INTEGUMENTARY Hx Dermatological Problems: No - MUSCULOSKELETAL/RHEUMATOLOGICAL Hx Falls: No - GASTROINTESTINAL Hx Gastrointestinal Disorders: No - GENITOURINARY/GYNECOLOGICAL Hx Genitourinary Disorders: No - PSYCHIATRIC Hx Substance Use: No - SURGICAL HISTORY Hx Surgeries: No - ANESTHESIA Hx Anesthesia: No Meds Allergies/Adverse Reactions: Allergies Allergy/AdvReac Type Severity Reaction Status Date / Time No Known Allergies Allergy Verified 06/12/17 13:56 - Medications Medications: Current Medications Acetaminophen (Tylenol 325mg Tab) 650 mg PO Q6 PRN PRN Reason: Fever >100.4 F Benzocaine/Menthol (Cepacol Sore Throat) 1 gunner PO Q2 PRN PRN Reason: Sore Throat Last Admin: 06/14/17 09:27 Dose: 1 gunner Levalbuterol HCl (Xopenex) 0.63 mg INH RQ6 PRISCILA Last Admin: 06/14/17 07:15 Dose: 0.63 mg Levalbuterol HCl (Xopenex) 0.63 mg INH RQ8 PRN PRN Reason: Shortness of Breath Last Admin: 06/13/17 17:41 Dose: 0.63 mg Oseltamivir Phosphate (Tamiflu Cap) 75 mg PO BID PRISCILA PRN Reason: Protocol Last Admin: 06/14/17 09:27 Dose: 75 mg Sodium Chloride ([place] Baby Saline 30 Ml) 2 drop SRINIVASA Q4 PRN PRN Reason: Nasal congestion Last Admin: 06/13/17 21:30 Dose: 2 drop Physical Exam - Constitutional Appears: Non-toxic, Chronically Ill - Head Exam Head Exam: NORMOCEPHALIC - Eye Exam Eye Exam: PERRL. absent: Scleral icterus - ENT Exam ENT Exam: Mucous Membranes Dry, Normal External Ear Exam - Neck Exam Neck exam: Negative for: Lymphadenopathy, Thyromegaly - Respiratory Exam Respiratory Exam: Decreased Breath Sounds, Clear to Auscultation Bilateral - Cardiovascular Exam Cardiovascular Exam: REGULAR RHYTHM, +S1, +S2 - GI/Abdominal Exam GI & Abdominal Exam: Diminished Bowel Sounds, Soft. absent: Tenderness - Rectal Exam Rectal Exam: Deferred - Exam Exam: NORMAL INSPECTION - Extremities Exam Extremities exam: Positive for: pedal pulses present. Negative for: calf tenderness, pedal edema, tenderness - Back Exam Back exam: absent: CVA tenderness (L), CVA tenderness (R), paraspinal tenderness - Neurological Exam Neurological exam: Alert, CN II-XII Intact, Oriented x3, Reflexes Normal - Psychiatric Exam Psychiatric exam: Normal Mood - Skin Skin Exam: Dry, Intact Results - Vital Signs Recent Vital Signs: Last Vital Signs Temp 98.2 F 06/14/17 08:57 Pulse 92 H 06/14/17 09:00 Resp 16 06/14/17 08:57 BP 104/65 06/14/17 08:57 Pulse Ox 98 06/14/17 08:57 - Labs Result Diagrams: 06/13/17 06:24 06/13/17 06:24 Assessment & Plan (1) Influenza-like symptoms Status: Acute (2) Tachycardia Status: Acute - Assessment and Plan (Free Text) Assessment: would cont to monitor closely improving on empiric rx ORTHO ASSISTANT eval recommended
[2017-06-14] MEDS ORDERED: Amoxicillin-Clav 875-125 mg Tab PO SCH (12:30)
--- NOTE | 2017-06-14 12:32 | PN ---
DATE: SUBJECTIVE: The patient is experiencing productive cough. She is afebrile. She denies retrosternal chest pain. Tachycardia has improved. PHYSICAL EXAMINATION: VITAL SIGNS: Blood pressure 104/65, heart rate 96, temperature 98.2, and respirations 16. HEENT: Normocephalic. CHEST: Minimal basal rhonchi. HEART: S1 and S2, regular. ABDOMEN: Soft. EXTREMITIES: No edema or calf tenderness. ASSESSMENT: 1. Upper respiratory tract infection, possible right lower lobe pneumonia. 2. Physiologic sinus tachycardia to the patient's shortness of breath as well as fever and besides an iatrogenic element related to the patient's nebulizer treatment. 3. Cannabinoid abuse. RECOMMENDATIONS: Continue current Xopenex inhaler, p.r.n. Tylenol for fever above 100.4. My order echocardiography study revealed normal left ventricular systolic function. No evidence of pericardial effusion. Official report is still pending. Kris Frausto MD
[2017-06-14] MEDS ORDERED: Sodium Chloride 3% for Inhalation 4 ML VIAL.NEB IH PRN (15:45)
[2017-06-14 16:19] VITALS: BP 108/71; PULSE 99; RESP 20; TEMP 98.1; O2SAT 97
--- NOTE | 2017-06-14 16:52 | CP.PCM.PN ---
Subjective - Date & Time of Evaluation Date of Evaluation: 06/14/17 - Subjective Subjective: F/U influenza like symptoms Cough intermittent , scanty productive , no SOB , no sore throat Objective - Vital Signs/Intake and Output Vital Signs (last 24 hours): Temp Pulse Resp BP Pulse Ox 98.1 F 99 H 20 108/71 97 06/14/17 16:18 06/14/17 16:18 06/14/17 16:18 06/14/17 16:18 06/14/17 16:18 - Labs Labs: 06/13/17 06:24 06/13/17 06:24 PT 11.6 Seconds (9.8-13.1) 06/12/17 14:13 INR 1.0 (0.9-1.2) 06/12/17 14:13 APTT 27.9 Seconds (25.6-37.1) 06/12/17 14:13 - Constitutional Appears: No Acute Distress - Head Exam Head Exam: NORMAL INSPECTION - Eye Exam Eye Exam: PERRL - ENT Exam ENT Exam: Normal Exam - Neck Exam Neck Exam: Normal Inspection - Respiratory Exam Respiratory Exam: Clear to Ausculation Bilateral - Cardiovascular Exam Cardiovascular Exam: REGULAR RHYTHM - GI/Abdominal Exam Additional comments: defered - Extremities Exam Extremities Exam: Normal Inspection - Back Exam Back Exam: NORMAL INSPECTION - Neurological Exam Neurological Exam: Alert, Oriented x3. absent: Motor Sensory Deficit - Psychiatric Exam Psychiatric exam: Normal Mood - Skin Skin Exam: Warm Assessment and Plan (1) Influenza-like symptoms Status: Acute (2) 19 weeks gestation of Status: Acute (3) Cannabis abuse Status: Acute - Assessment and Plan (Free Text) Plan: Pulmonary cleared for discharge ,Patient was discharged in Tamiflu , Augmentin , Xopenex HFA 2 puff q 4hs PRN and Robitusin plain 2 tsp q 4 hs PRN cough , f/u PMD and BAG END SEWER in a week
--- NOTE | 2017-06-14 20:15 | CARD ---
APPROVED REPORT EXAM: Two-dimensional and M-mode echocardiogram with Doppler and color Doppler. Other Information Quality : GoodRhythm : NSR INDICATION Abnormal EKG/Arrhythmia Surgery/Intervention : Yes 2D DIMENSIONS IVSd0.87 (0.7-1.1cm)LVDd4.28 (3.9-5.9cm) LVOT Diameter1.98 (1.8-2.4cm)PWd0.88 (0.7-1.1cm) IVSs1.35 (0.8-1.2cm)LVDs2.42 (2.5-4.0cm) FS (%) 43.3 %PWs1.34 (0.8-1.2cm) M-Mode DIMENSIONS Left Atrium (MM)3.30 (2.5-4.0cm)IVSd1.10 (0.7-1.1cm) Aortic Root2.82 (2.2-3.7cm)LVDd4.35 (4.0-5.6cm) Aortic Cusp Exc.1.96 (1.5-2.0cm)PWd1.08 (0.7-1.1cm) IVSs1.51 cmFS (%) 43 % LVDs2.49 (2.0-3.8cm)PWs1.29 cm Mitral Valve E/A ratio0.0 TDI E/Lateral E'0.0E/Medial E'0.0 Pulmonary Valve PV Peak Htozztlz901.3cm/s LEFT VENTRICLE The left ventricle is normal size. There is normal left ventricular wall thickness. The left ventricular function is normal. The left ventricular ejection fraction is 65% There is normal LV segmental wall motion. The left ventricular diastolic function is normal. No left ventricle thrombus noted on this study. There is no ventricular septal defect visualized. There is no left ventricular aneurysm. There is no mass noted in the left ventricle. RIGHT VENTRICLE The right ventricle is normal size. There is normal right ventricular wall thickness. The right ventricular systolic function is normal. ATRIA The left atrium size is normal. The right atrium size is normal. The interatrial septum is intact with no evidence for an atrial septal defect. AORTIC VALVE The aortic valve is normal in structure. No aortic regurgitation is present. There is no aortic valvular stenosis. There is no aortic valvular vegetation. MITRAL VALVE The mitral valve is normal in structure. There is no evidence of mitral valve prolapse. There is no mitral valve stenosis. There is no mitral valve regurgitation noted. TRICUSPID VALVE The tricuspid valve is normal in structure. There is no tricuspid valve regurgitation noted. There is no tricuspid valve prolapse or vegetation. There is no tricuspid valve stenosis. PULMONIC VALVE The pulmonary valve is normal in structure. There is no pulmonic valvular regurgitation. There is no pulmonic valvular stenosis. GREAT VESSELS The aortic root is normal in size. The ascending aorta is normal in size. The IVC is normal in size and collapses >50% with inspiration. PERICARDIAL EFFUSION The pericardium appears normal. There is no pleural effusion. <Conclusion> Normal Echocardiogram
== END 2017-06-14 16:34 | disposition home or self-care (01) ==
LOC: H.ER 13:44 → H.ERHOLD 18:42 → H.TEL 20:21
PROVIDERS: ADMIT Internal Medicine; ATTEND Internal Medicine
DX: O99.512 Diseases of the respiratory system complicating pregnancy, second trimester (principal); J18.9 Pneumonia, unspecified organism; O99.412 Diseases of the circulatory system complicating pregnancy, second trimester; O99.322 Drug use complicating pregnancy, second trimester; R00.0 Tachycardia, unspecified; Z3A.20 20 weeks gestation of pregnancy; F12.10 Cannabis abuse, uncomplicated; J06.9 Acute upper respiratory infection, unspecified; J98.01 Acute bronchospasm
CPT/HCPCS: 36415; 71045; 71275; 76815; 80053; 81003; 82607; 82803; 84436; 84443; 85025; 85027; 85610; 85730; 87040; 87070; 87086; 87804; 93005; 93306; 93970; 94150; 94640; 96360; 99285; G0378; G0480; J7040; Q9967